=== PATIENT | male | born 1955 | race African-American/Black ===

== ENCOUNTER 2017-09-19 08:20 | Emergency (ER) | payer OTHER ==
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
[2017-09-19 10:31] VITALS: BP 155/103
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
== END 2017-09-19 10:29 | disposition home or self-care (01) ==
LOC: ER 08:20
DX: S39.012A Strain of muscle, fascia and tendon of lower back, initial encounter (principal); V89.2XXA Person injured in unspecified motor-vehicle accident, traffic, initial encounter
CPT/HCPCS: 72100; 99284